=== PATIENT | female | born 1960 ===

== ENCOUNTER 2017-12-16 16:46 | Emergency (ER) | payer MEDICAID ==
[2017-12-16 16:47] VITALS: BMI 42.7
[2017-12-16] MEDS ORDERED: Sodium Chloride 0.9% 1,000 ML IV ONE (17:15)
[2017-12-16 17:47] LABS: BASO % 0.5 % (0.0-2.0); EOS # 0.1 K/uL (0.0-0.7); EOS % 1.4 % (0.0-4.0); HEMOGLOBIN 13.6 g/dL (11.0-16.0); LYMPH # 2.1 K/uL (1.0-4.3); LYMPH % 23.3 % (20.0-40.0); MEAN CELL VOLUME 82.5 fL (81.0-99.0); MEAN CORPUSCULAR HGB CONC 32.7 g/dL (33.0-37.0); MEAN PLATELET VOLUME 8.4 fL (7.2-11.7); MONO # 0.5 K/uL (0.0-0.8); MONO % 5.8 % (0.0-10.0); NEUT # 6.2 K/uL (1.8-7.0); RBC 5.05 Mil/uL (3.80-5.20); RED CELL DISTRIBUTION WIDTH 13.7 % (11.5-14.5)
[2017-12-16 17:53] LABS: SQUAMOUS EPITHIAL < 1 /hpf (0-5); URINE BACTERIA RARE (<OCC); URINE BILIRUBIN NEGATIVE (NEGATIVE); URINE BLOOD NEGATIVE (NEGATIVE); URINE CLARITY Hazy (Clear); URINE COLOR Yellow (YELLOW); URINE GLUCOSE (UA) NORMAL (Normal); URINE LEUKOCYTE ESTERASE NEG Leu/uL (Negative); URINE PROTEIN NEGATIVE (NEGATIVE); URINE UROBILINOGEN NORMAL mg/dL (0.2-1.0)
[2017-12-16 18:06] LABS: ALB/GLOB RATIO 1.2 (1.0-2.1); ALBUMIN 4.4 g/dL (3.5-5.0); ALT/SGPT 25 U/L (9-52); AST/SGOT 37 U/L (14-36); BLOOD UREA NITROGEN 18 mg/dL (7-17); CALCIUM 9.1 mg/dl (8.6-10.4); GFR AFRICAN-AMERICAN > 60; GFR NON-AFRICAN AMERICAN > 60; LIPASE 112 U/L (23-300)
--- NOTE | 2017-12-16 18:39 | C.PDOC ---
History Of Present Illness 57-year-old female, presents to the emergency department with complaints of abdominal pain, that is associated nausea and three episodes of non-bloody/non- bilious vomiting, that started after she ate "old food." Patient denies fevers, chest pain or shortness of breath. Time Seen by Provider: 12/16/17 17:03 Chief Complaint (Nursing): GI Problem History Per: Patient History/Exam Limitations: no limitations Onset/Duration Of Symptoms: Hrs Current Symptoms Are (Timing): Still Present Severity: Moderate Location Of Pain/Discomfort: Epigastric Past Medical History Reviewed: Historical Data, Nursing Documentation, Vital Signs Vital Signs: Last Vital Signs Temp 97.6 F 12/16/17 16:51 Pulse 71 12/16/17 16:51 Resp 20 12/16/17 16:51 BP 130/74 12/16/17 16:51 Pulse Ox 96 12/16/17 18:39 - Medical History PMH: Asthma, Diabetes, HTN, Hypercholesterolemia, Peripheral Edema (ONLY IN SUMMER MONTHS), Sleep Apnea (POSITIVE SLEEP STUDY AWAITING C PAP) Surgical History: Cholecystectomy, Endoscopy - [facility] Procedures COLONOSCOPY (08/06/14) ESOPHAGOGASTRODUODENOSCOPY [EGD] W/CLOSED BIOPSY (08/06/14) INJECT/INFUSE NEC (05/27/13) LAPAROSCOPIC CHOLECYSTECTOMY (01/19/15) LAPAROSCOPIC ROBOTIC ASSISTED PROCEDURE (01/06/15) LAPAROSCOPIC VERTICAL (SLEEVE) GASTRECTOMY (01/06/15) OTHER GASTROSCOPY (01/06/15) OTHER LOCAL DESTRUC SKIN (07/21/13) Family History: States: [place] - Social History Hx Tobacco Use: No Hx Alcohol Use: No Hx Substance Use: No - Immunization History Hx Tetanus Toxoid Vaccination: Yes Hx Influenza Vaccination: Yes Hx Pneumococcal Vaccination: No Review Of Systems Constitutional: Negative for: Fever, Chills Cardiovascular: Negative for: Chest Pain Respiratory: Negative for: Shortness of Breath Gastrointestinal: Positive for: Nausea, Vomiting, Abdominal Pain. Negative for : Diarrhea Musculoskeletal: Negative for: Back Pain Neurological: Negative for: Weakness, Numbness, Headache, Dizziness Physical Exam - Physical Exam Appears: Non-toxic, No Acute Distress Skin: Normal Color, Warm, Dry, No Rash Head: Normacephalic Eye(s): bilateral: PERRL Nose: Normal Oral Mucosa: Moist Lips: Normal Appearing Neck: Normal ROM Cardiovascular: Rhythm Regular, No Murmur Respiratory: Normal Breath Sounds, No Accessory Muscle Use Gastrointestinal/Abdominal: Soft, Tenderness (mild, epigastric) Extremity: Normal ROM, No Deformity, No Swelling Neurological/Psych: Oriented x3, Normal Speech ED Course And Treatment - Laboratory Results Result Diagrams: 12/16/17 17:43 12/16/17 17:43 O2 Sat by Pulse Oximetry: 96 (RA) Pulse Ox Interpretation: Normal Progress Note: Patient treated with IVFs, zofran and Protonix. Disposition - Disposition Referrals: Kathy Pina, [Non-Staff] - Disposition: HOME/ ROUTINE Disposition Time: 18:15 Condition: IMPROVED Additional Instructions: Thank you for letting us take care of you today. The emergency medical care you received today was directed at your acute symptoms. If you were prescribed any medication, please fill it and take as directed. It may take several days for your symptoms to resolve. Return to the Emergency Department if your symptoms worsen, do not improve, or if you have any other problems. Please contact your doctor or call one of the physicians/clinics you have been referred to that are listed on the Patient Visit Information form that is included in your discharge packet. Bring any paperwork you were given at discharge with you along with any medications you are taking to your follow up visit. Our treatment cannot replace ongoing medical care by a primary care provider (PCP) outside of the emergency department. Thank you for allowing the [facility] team to be part of your care today. Follow up with your primary doctor in 2-3 days for re-evaluation and further management. Radha por dejarnos atenderlo hoy. La atencin mdica de emergencia que recibi hoy estaba dirigida a elena sntomas agudos. Si le prescribieron algn medicamento, llnelo y tome segn las indicaciones. Elena sntomas pueden tardar varios stewart en resolverse. Regrese al Departamento de Emergencia si elena s ntomas empeoran, no mejoran o si tiene algn otro problema. Comunquese con renee mdico o llame a carson de los mdicos / clnicas a los que godinez sido referido que figura en el formulario de Informacin de visita del paciente que se incluye en renee paquete de selvin. Traiga todos los documentos que recibi al momento del selvin junto con los medicamentos que est tomando en renee visita de seguimiento. Nuestro tratamiento no puede reemplazar la atencin mdica en curso por parte de un proveedor de atencin primaria (PCP) fuera del departamento de emergencias. Radha por permitir que el equipo de [facility] sea parte de renee cuidado hoy. Jayro un seguimiento con renee mdico de cabecera en 2-3 stewart para nazanin nueva evaluacin y nazanin administracin posterior. Prescriptions: Ondansetron ODT [Zofran ODT] 4 mg PO Q8 PRN #20 odt PRN Reason: Nausea/Vomiting Ranitidine HCl [Zantac] 150 mg PO BID #20 tablet Instructions: Gastritis (DC) Forms: Gen Discharge Inst Sierra Leonean Print Language: WOLOF - Clinical Impression Clinical Impression: Gastritis - Scribe Statement The provider has reviewed the documentation as recorded by the Scribe (Nicolas Barragan) All medical record entries made by the Scribe were at my direction and personally dictated by me. I have reviewed the chart and agree that the record accurately reflects my personal performance of the history, physical exam, medical decision making, and the department course for this patient. I have also personally directed, reviewed, and agree with the discharge instructions and disposition.
[2017-12-16 18:54] VITALS: BP 126/74; PULSE 76; RESP 16; TEMP 98; O2SAT 98
== END 2017-12-16 18:53 | disposition home or self-care (01) ==
LOC: C.ER 16:46
DX: K29.70 Gastritis, unspecified, without bleeding (principal)
CPT/HCPCS: 80053; 81001; 83690; 85025; 87086; 96374; 96375; 99284; C9113; J2405; J7040

== ENCOUNTER 2018-02-26 01:35 | Emergency (ER) | payer MEDICAID ==
[2018-02-26 01:35] VITALS: BMI 42.7
[2018-02-26 01:49] VITALS: TEMP 98
--- NOTE | 2018-02-26 02:28 | C.PDOC ---
History Of Present Illness 57 y/o female presents to ED for complaints of generalized pain in left lower extremity that radiates to chest and left arm that began 3 days ago. Patient states pain worsens with movement. Denies injuries or any other physical complaints. Chief Complaint (Nursing): Lower Extremity Problem/Injury History Per: Patient History/Exam Limitations: no limitations Onset/Duration Of Symptoms: Days (3) Current Symptoms Are (Timing): Still Present Recent travel outside of the [place]: No Past Medical History Reviewed: Historical Data, Nursing Documentation, Vital Signs Vital Signs: Last Vital Signs Temp 98.0 F 02/26/18 01:41 Pulse 77 02/26/18 01:41 Resp 16 02/26/18 01:41 BP 134/80 02/26/18 01:41 Pulse Ox 99 02/26/18 02:48 - Medical History PMH: Asthma, Diabetes, HTN, Hypercholesterolemia, Peripheral Edema (ONLY IN SUMMER MONTHS), Sleep Apnea (POSITIVE SLEEP STUDY AWAITING C PAP) Surgical History: Cholecystectomy, Endoscopy - [facility] Procedures COLONOSCOPY (08/06/14) ESOPHAGOGASTRODUODENOSCOPY [EGD] W/CLOSED BIOPSY (08/06/14) INJECT/INFUSE NEC (05/27/13) LAPAROSCOPIC CHOLECYSTECTOMY (01/19/15) LAPAROSCOPIC ROBOTIC ASSISTED PROCEDURE (01/06/15) LAPAROSCOPIC VERTICAL (SLEEVE) GASTRECTOMY (01/06/15) OTHER GASTROSCOPY (01/06/15) OTHER LOCAL DESTRUC SKIN (07/21/13) Family History: States: [place] - Social History Hx Tobacco Use: No Hx Alcohol Use: No Hx Substance Use: No - Immunization History Hx Tetanus Toxoid Vaccination: Yes Hx Influenza Vaccination: Yes Hx Pneumococcal Vaccination: Yes Review Of Systems Constitutional: Negative for: Fever, Chills Cardiovascular: Positive for: Chest Pain Respiratory: Negative for: Shortness of Breath Gastrointestinal: Negative for: Nausea, Vomiting, Abdominal Pain, Diarrhea Musculoskeletal: Positive for: Arm Pain (Left), Leg Pain (Left leg) Skin: Negative for: Rash Neurological: Negative for: Weakness, Numbness Physical Exam - Physical Exam Appears: Well, Non-toxic, No Acute Distress Skin: Normal Color, Warm, Dry, No Rash Head: Atraumatic, Normacephalic Eye(s): bilateral: Normal Inspection, PERRL, EOMI Nose: Normal, No Discharge Oral Mucosa: Moist Neck: Trachea Midline, No Midline Cervical Tenderness, No Paracervical Tenderness, Supple Chest: Symmetrical, Tenderness (Posterior chest wall ) Cardiovascular: Rhythm Regular, No Murmur Respiratory: Normal Breath Sounds, No Decreased Breath Sounds, No Rales, No Rhonchi, No Wheezing Gastrointestinal/Abdominal: Soft, No Tenderness Extremity: Normal ROM, Tenderness (Left shoulder ), No Pedal Edema, No Deformity Extremity: Bilateral: Normal Color And Temperature, Normal ROM Pulses: Left Dorsalis Pedis: Normal Neurological/Psych: Oriented x3 (Awake and alert), Normal Speech (Speaking in full sentences ), Other (No focal deficits ) Gait: Steady ED Course And Treatment O2 Sat by Pulse Oximetry: 99 (RA) Pulse Ox Interpretation: Normal Medical Decision Making Medical Decision Making: Administered Toradol and Ultram. Disposition Counseled Patient/Family Regarding: Diagnosis - Disposition Referrals: [facility] [Outside] Disposition: HOME/ ROUTINE Disposition Time: 02:40 Condition: STABLE Prescriptions: Cyclobenzaprine [Cyclobenzaprine HCl] 10 mg PO TID #20 tab traMADol/Acetaminophen [Ultracet 325 MG-37.5 MG] 1 tab PO Q6 #14 tab Instructions: Muscle and Bone Pain (DC), Tendonitis (DC) Forms: [employer] (Faroese) - POA Present On Arrival: None - Clinical Impression Clinical Impression: Muscle ache of extremity, Tendinitis - Scribe Statement The provider has reviewed the documentation as recorded by the Scribjose elias Blevins All medical record entries made by the Scribe were at my direction and personally dictated by me. I have reviewed the chart and agree that the record accurately reflects my personal performance of the history, physical exam, medical decision making, and the department course for this patient. I have also personally directed, reviewed, and agree with the discharge instructions and disposition.
[2018-02-26 03:51] VITALS: BP 125/87; PULSE 74; RESP 18; O2SAT 96
== END 2018-02-26 03:30 | disposition home or self-care (01) ==
LOC: C.ER 01:35
DX: M79.1 Myalgia (principal); M77.9 Enthesopathy, unspecified

== ENCOUNTER 2018-10-10 07:10 | Outpatient (CLI) | payer MEDICAID | END 2018-10-10 07:11 | disposition home or self-care (01) | LOC: C.CARD 07:10 ==